=== PATIENT | male | born 1950 | race Caucasian/White ===

== ENCOUNTER → 2018-06-10 | Outpatient (CLI) | payer BC ==
[~2018-06-10] MED LIST: ADVAIR DISKUS; CELEBREX200 MG; CIMZIA400 MG/2 M; CLARITIN; GEMFIBROZIL600 MG; IMODIUM2 MG PO; INVOKANA 100 MG; IOPAMIDOL 370 MG/ML 200 ML INFUS..BTL INJ ONE; KETOROLAC TROME10 MG; LISINOPRIL-HCT1 EAC1; METANX; METHOTREXATE; NEXIUM40 MG; PREDNISONE5 MG; SODIUM CHLORIDE 0.9% 50ML 50 ML ONE; TYLENOL WITH C1 EACH PO
--- NOTE | 2018-06-10 17:58 | Diagnostic Imaging Report ---
PROCEDURE: CT ABDOMEN AND PELVIS WITH CONTRAST TECHNIQUE: The abdomen and pelvis were scanned utilizing a multidetector helical scanner from the diaphragm to the lesser trochanter after the IV administration of 100 cc of Isovue 370. Coronal and sagittal multiplanar reformations were obtained. DLP: 481.6 mGy-cm COMPARISON: None. INDICATIONS: HYPERBILIRUBINEMIA FINDINGS: LOWER THORAX: Normal. HEPATOBILIARY: Diffuse hypoattenuation of the liver, compatible with steatosis. No focal hepatic lesions. No biliary ductal dilatation. Nonspecific smooth gallbladder wall enhancement without wall thickening. SPLEEN: No splenomegaly. PANCREAS: No focal masses or ductal dilatation. ADRENALS: No adrenal nodules. KIDNEYS/URETERS: No hydronephrosis or stones. Heterogeneous 3.3 cm lesion in the inferior right renal pole measures approximately 67 HU. PELVIC ORGANS/BLADDER: Unremarkable. PERITONEUM / RETROPERITONEUM: No free air or fluid. LYMPH NODES: No lymphadenopathy. VESSELS: Unremarkable. GI TRACT: No distention or wall thickening. Cecum is located in the mid abdomen. Appendix is normal in appearance. The duodenum does not cross left of midline with most of the small bowel located in the right abdomen. BONES AND SOFT TISSUES: Small inguinal hernias. IMPRESSION: 1. Right renal mass is concerning for a solid mass. Recommend further evaluation with renal mass protocol CT or MRI for further evaluation. 2. Intestinal malrotation as above. Dictated by: Carlos Alberto Barron M.D. on 06/10/2018 at 18:03 Electronically approved by: Carlos Alberto Barron M.D. on 06/10/2018 at 18:03
== END ==
LOC: CT 16:31
PROVIDERS: ATTEND Family Medicine
DX: E80.6 Other disorders of bilirubin metabolism (principal)
CPT/HCPCS: 74177; Q9967

== ENCOUNTER → 2018-06-24 | Outpatient (CLI) | payer BC ==
[~2018-06-24] MED LIST changes: +GADOBENATE DIMEGLUMINE 1 ML IV ONE; -IOPAMIDOL 370 MG/ML 200 ML INFUS..BTL INJ ONE; -SODIUM CHLORIDE 0.9% 50ML 50 ML ONE
--- NOTE | 2018-06-24 14:29 | Diagnostic Imaging Report ---
MRI abdomen CPT code: 43893 Indication: Right renal mass Technique: Axial T1 nonfat sat in and out of phase, axial T2 fat sat, coronal T2 nonfat sat, axial DWI and ADC MR images of the abdomen were obtained before and after the administration of 15 cc of gadolinium. Axial T1 fat sat GRE dynamic images in precontrast, arterial, venous and delayed phases were obtained. Comparison: CT abdomen/pelvis 06/10/2018 Findings: Lung bases: Clear. Liver: The hepatic fat percentage is calculated to be 8.4 suggestive of mild steatosis. No evidence of mass. Gallbladder: Present. No wall thickening, gallstone or ductal dilatation. Biliary tree: No intrahepatic or extra hepatic biliary ductal dilatation. The common bile duct measures 8 mm and tapers as it approaches the ampulla (previously, 9 mm). Pancreas: Normal T1 and T2 signal. No mass or ductal dilatation. There is mild fatty atrophy. Spleen: Normal size and signal. No mass Adrenal glands: No mass Kidneys: Right kidney: Solid mass in the lower pole measures 3.5 x 3.4 x 3.5 cm. It is predominantly low in T1 and T2 signal. It contains several tiny nodular foci of increased T2 signal, predominantly at the inferior aspect. There are also scattered foci of increased T1 signal on fat-suppressed gradient sequence suggestive of hemorrhage. In addition, blooming artifact is present. After contrast administration, there are several small areas of enhancement. No calcifications are identified on CT. There is a 2 mm nonenhancing lesion the upper pole that is not visible on T1-weighted sequences. No hydronephrosis. Left kidney: No evidence of mass or hydronephrosis. Renal vasculature: Single arteries supply each kidney. The renal veins are normal in morphology and are widely patent. Lymph nodes: No enlarged abdominal or periaortic lymph nodes. Aorta: Normal in diameter. Celiac artery and SMA are widely patent. No free fluid or fluid collection. Bowel: Stomach and visualized portions of the small bowel and large bowel are normal in diameter with normal wall thickness. Bones: Normal marrow signal. No focal osseous lesions. IMPRESSION: 1. Mass in the lower pole of the right kidney has high T2 signal foci and several punctate areas of fat with several areas of enhancement. 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 However, an AML should also be considered. 2. Mild hepatic steatosis. Signed by: Dr. Yanira Marquis MD on 06/24/2018 2:25 PM
== END ==
LOC: MRI 10:46
PROVIDERS: ATTEND Family Medicine
DX: N28.89 Other specified disorders of kidney and ureter (principal)
CPT/HCPCS: 74183